=== PATIENT | female | born 1955 | race Caucasian/White ===

== ENCOUNTER → 2017-07-18 | Outpatient (CLI) | payer OTHER | LOC: FIMAGING 15:51 | PROVIDERS: ATTEND Internal Medicine Hematology & Oncology | DX: Z12.31 Encounter for screening mammogram for malignant neoplasm of breast (principal); Z85.3 Personal history of malignant neoplasm of breast; Z80.3 Family history of malignant neoplasm of breast | CPT/HCPCS: G0202 ==

== ENCOUNTER → 2018-08-31 | Outpatient (CLI) | payer OTHER | LOC: FIMAGING 10:53 | PROVIDERS: ATTEND Internal Medicine Hematology & Oncology | DX: Z12.31 Encounter for screening mammogram for malignant neoplasm of breast (principal); Z85.3 Personal history of malignant neoplasm of breast; Z80.3 Family history of malignant neoplasm of breast ==

== ENCOUNTER → 2018-09-03 | Outpatient (CLI) | payer OTHER ==
[~2018-09-03] MED LIST: IOPAMIDOL (ISOVUE-300) 150 ML BTL ONE
== END ==
LOC: FIMAGING 13:55
PROVIDERS: ATTEND Physician Assistant Medical
DX: R33.9 Retention of urine, unspecified (principal); R31.0 Gross hematuria; N20.0 Calculus of kidney
CPT/HCPCS: Q9967